=== PATIENT | male | born 1970 | race Caucasian/White ===

== ENCOUNTER 2016-08-06 04:48 | Emergency (ER) | payer OTHER ==
[~2016-08-06] VITALS: Ht 180.3 cm; Wt 75.0 kg
[~2016-08-06 04:48] MED LIST: CHLO25TA5 PO
[2016-08-06 04:57] VITALS: BP 136/106; PULSE 88; RESP 16; TEMP 98.6; O2SAT 99
[2016-08-06] MEDS ORDERED: EPIN1INJ19 IM (05:11)
--- NOTE | 2016-08-06 05:11 | PD ---
HPI Chief Complaint: Psychiatric Symptoms Time Seen by Provider: 04:57 Travel History International Travel<30 days: No Contact w/Intl Traveler<30days: No Traveled to known affect area: No History of Present Illness HPI 45-year-old male with history of schizoaffective disorder, depression, hepatitis C. He presents under a Parks act initiated by the Police Department. According to his paperwork the police were called by his sister. Reportedly the patient has been having thoughts of depression, suicidal thoughts as well as homicidal thoughts. He reports that he has been arguing with his fiance. He feels unappreciated. He reports that tonight he started hearing voices which are telling him to kill his fiance and then kill himself. Specifically he was having thoughts about jumping off of a tower or a bridge. The patient reports that he has not seen a psychiatrist "in a long time." He admits to using marijuana 1 time last week, no other illicit drug use. He endorses anxiety and loose stools over the past few weeks. He has no other complaints at this time. [facility] Past Medical History Anxiety: Yes Depression: Yes Heart Rhythm Problems: Yes ("R/T ADMISSION FELT PALPATATION") Cardiac Catheterization: No Cardiovascular Problems: Yes High Cholesterol: No Congestive Heart Failure: No Diabetes: No Diminished Hearing: No Hepatitis: Yes (C) Hypertension: Yes (NOT ON MEDS) Seizures: Yes Past Surgical History Eye Surgery: Yes (RETINAL SURG CHILD) Social History Alcohol Use: Yes Tobacco Use: Yes (<1/2 DAY) Substance Use: Yes Allergies-Medications (Allergen,Severity, Reaction): Coded Allergies: No Known Allergies (Unverified , 12/16/13) Reported Meds & Prescriptions Reported Meds & Active Scripts Active Reported Epinephrine Inj Pack (Epinephrine) 0.15 Mg/0.15 Ml Pfpen 0.15 Mg IM ONCE PRN Review of Systems Except as stated in HPI: all other systems reviewed are Neg Physical Exam Narrative GENERAL: Well-developed well-nourished male in no acute distress SKIN: Warm and dry. HEAD: Atraumatic. Normocephalic. EYES: Pupils equal and round. No scleral icterus. No injection or drainage. ENT: No nasal bleeding or discharge. Mucous membranes pink and moist. NECK: Trachea midline. No JVD. CARDIOVASCULAR: Regular rate and rhythm. No murmur appreciated. RESPIRATORY: No accessory muscle use. Clear to auscultation. Breath sounds equal bilaterally. GASTROINTESTINAL: Abdomen soft, non-tender, nondistended. Hepatic and splenic margins not palpable. MUSCULOSKELETAL: No obvious deformities. No edema. NEUROLOGICAL: Awake and alert. No obvious cranial nerve deficits. Motor grossly within normal limits. Normal speech. PSYCHIATRIC: Anxious, tearful on initial examination. Data Data Last Documented VS Vital Signs Date Time Temp Pulse Resp B/P Pulse Ox O2 Delivery O2 Flow Rate FiO2 08/06/16 05:45 97.9 81 16 115/62 96 Room Air Orders Complete Blood Count With Diff (08/06/16 04:54) Comprehensive Metabolic Panel (08/06/16 04:54) Psych Screen (08/06/16 04:54) Drug Screen, Random Urine (08/06/16 04:54) Alcohol (Ethanol) (08/06/16 04:54) Salicylates (Aspirin) (08/06/16 04:54) Tylenol (Acetaminophen) (08/06/16 04:54) Labs Laboratory Tests Test 08/06/16 05:00 White Blood Count 13.9 TH/MM3 Red Blood Count 5.14 MIL/MM3 Hemoglobin 16.3 GM/DL Hematocrit 46.4 % Mean Corpuscular Volume 90.3 FL Mean Corpuscular Hemoglobin 31.7 PG Mean Corpuscular Hemoglobin 35.1 % Concent Red Cell Distribution Width 14.2 % Platelet Count 254 TH/MM3 Mean Platelet Volume 7.9 FL Neutrophils (%) (Auto) 72.9 % Lymphocytes (%) (Auto) 17.5 % Monocytes (%) (Auto) 7.1 % Eosinophils (%) (Auto) 2.1 % Basophils (%) (Auto) 0.4 % Neutrophils # (Auto) 10.1 TH/MM3 Lymphocytes # (Auto) 2.4 TH/MM3 Monocytes # (Auto) 1.0 TH/MM3 Eosinophils # (Auto) 0.3 TH/MM3 Basophils # (Auto) 0.1 TH/MM3 CBC Comment DIFF FINAL Differential Comment Sodium Level 138 MEQ/L Potassium Level 3.9 MEQ/L Chloride Level 102 MEQ/L Carbon Dioxide Level 26.8 MEQ/L Anion Gap 9 MEQ/L Blood Urea Nitrogen 8 MG/DL Creatinine 0.88 MG/DL Estimat Glomerular Filtration 94 ML/MIN Rate Random Glucose 107 MG/DL Calcium Level 9.1 MG/DL Total Bilirubin 0.3 MG/DL Aspartate Amino Transf 34 U/L (AST/SGOT) Alanine Aminotransferase 53 U/L (ALT/SGPT) Alkaline Phosphatase 117 U/L Total Protein 8.3 GM/DL Albumin 4.0 GM/DL Salicylates Level LESS THAN 1.7 MG/DL Acetaminophen Level LESS THAN 2.0 MCG/ML Ethyl Alcohol Level LESS THAN 3 MG/DL MDM Medical Decision Making Medical Screen Exam Complete: Yes Emergency Medical Condition: Yes Medical Record Reviewed: Yes Differential Diagnosis Schizoaffective disorder, adjustment reaction, acute psychosis, schizophrenia, major depressive disorder, substance induced disorder Narrative Course 45-year-old male presents under Parks act for psychiatric evaluation. Mental health screening discussed with the patient. Psychiatric screen ordered. The patient is medically cleared for psychiatric disposition. Diagnosis Primary Impression: Suicidal ideation Gilberto Cornejo Aug 06, 2016 05:11
[2016-08-06 05:25] LABS: AUTOMATED NEUTROPHIL # 10.1 TH/MM3 (1.8-7.7); BASOPHIL # 0.1 TH/MM3 (0-0.2); BASOPHIL % 0.4 % (0.0-2.0); EOSINOPHIL # 0.3 TH/MM3 (0-0.4); EOSINOPHIL % 2.1 % (0.0-4.0); HEMATOCRIT 46.4 % (39.0-51.0); HEMO FLAGS DIFF FINAL; LYMPH % 17.5 % (9.0-44.0); LYMPHOCYTE # 2.4 TH/MM3 (1.0-4.8); MEAN CELL VOLUME 90.3 FL (80.0-100.0); MEAN CORPUSCULAR HEMOGLOBIN 31.7 PG (27.0-34.0); MEAN CORPUSCULAR HGB CONC 35.1 % (32.0-36.0); MONO % 7.1 % (0.0-8.0); NEUT % 72.9 % (16.0-70.0); PLATELET COUNT 254 TH/MM3 (150-450); RED BLOOD COUNT 5.14 MIL/MM3 (4.50-5.90); RED CELL DISTRIBUTION WIDTH 14.2 % (11.6-17.2); WHITE BLOOD COUNT 13.9 TH/MM3 (4.0-11.0)
[2016-08-06 05:45] VITALS: BP 115/62; PULSE 81; RESP 16; TEMP 97.9; O2SAT 96
[2016-08-06 05:46] LABS: ANION GAP 9 MEQ/L (5-15); AST (GOT) 34 U/L (15-37); BICARBONATE 26.8 MEQ/L (21.0-32.0); BLOOD UREA NITROGEN 8 MG/DL (7-18); CHLORIDE 102 MEQ/L (98-107); GLOMERULAR FILTRATION RATE 94 ML/MIN (>89); POTASSIUM 3.9 MEQ/L (3.5-5.1); SODIUM (NA) 138 MEQ/L (136-145)
[2016-08-06 05:50] LABS: ALKALINE PHOSPHATASE 117 U/L (45-117); ALT (GPT) 53 U/L (12-78); TOTAL BILIRUBIN ADULT 0.3 MG/DL (0.2-1.0)
[2016-08-06 05:53] LABS: ACETAMINOPHEN LESS THAN 2.0 MCG/ML (10.0-30.0)
[2016-08-06 07:15] VITALS: BP 120/77; PULSE 76; RESP 17; TEMP 97.8; O2SAT 99
[2016-08-06 12:38] VITALS: PULSE 83; RESP 17; TEMP 97.9; O2SAT 97
[2016-08-06 12:53] VITALS: BP 120/78; PULSE 76; RESP 18; TEMP 97.8; O2SAT 99
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
[2016-08-06 22:04] VITALS: BP 124/78; PULSE 75; RESP 18; O2SAT 97
[2016-08-06 23:31] LABS: AMPHETAMINE, URINE NEG (NEG); BARBITURATES, URINE NEG (NEG); COCAINE, URINE NEG (NEG)
[2016-08-07 02:25] VITALS: BP 124/80; PULSE 73; RESP 17; O2SAT 98
== END 2016-08-07 04:37 ==
LOC: NEPD 04:48 → NEPJ 08-07 04:37
DX: R45.851 Suicidal ideations (principal); F41.8 Other specified anxiety disorders; F17.210 Nicotine dependence, cigarettes, uncomplicated; F25.9 Schizoaffective disorder, unspecified; B19.20 Unspecified viral hepatitis C without hepatic coma
CPT/HCPCS: 80053; 80307; 85025; 99285

== ENCOUNTER 2016-12-17 06:01 | Emergency (ER) | payer OTHER ==
[~2016-12-17] VITALS: Ht 182.9 cm; Wt 75.0 kg
[~2016-12-17 06:01] MED LIST changes: -CHLO25TA5 PO; +EPIN1INJ19 IM
[2016-12-17 06:06] VITALS: BP 126/78; PULSE 92; RESP 18; TEMP 99; O2SAT 99
[2016-12-17 06:40] VITALS: BP 125/83; PULSE 91; RESP 18; O2SAT 95; O2SAT 99
--- NOTE | 2016-12-17 06:46 | PD ---
HPI Chief Complaint: Chest Pain Time Seen by Provider: 06:06 Travel History International Travel<30 days: No Contact w/Intl Traveler<30days: No Traveled to known affect area: No History of Present Illness HPI The patient is a 46 year old male who presents to the [facility] emergency department with a history of being placed under arrest approximately 3 hours prior to arrival. When the patient arrived at the nursing home approximately one hour prior to arrival in the emergency department he began to complain of chest pain. The patient was then brought to the emergency department for evaluation and treatment. The patient reports having a chest pain that is sharp in the left side of his chest. He reports that it has been constant. He denies having any shortness of breath associated with this. He reports that he does have a cough, however it has not been any worse than usual. The patient does report smoking. The patient reports that he got out of rehabilitation today. He reports that he was in rehabilitation for 3 days related to methamphetamine use, Jared use, and Velma use. The patient reports that he also uses IV drugs. When asked what he uses IV he reports anything he can get a hold of. The patient's past medical history is significant for having hepatitis C. He denies any prior history of cardiac disease. On review of systems, he denies any recent fevers, worsening cough or congestion, neck pain, urinary symptoms, or neurologic symptoms. Since arriving in the emergency department, the patient also reports that he has abdominal pain that is generalized. He reports that he has had diarrhea 3-4 times today and vomiting one time today. The patient then requested to have something to drink. [facility] Past Medical History Narrative Medical The patient's past medical history is significant for IV drug use, polysubstance abuse, tobacco use, and hepatitis C, History of anxiety and depression, palpitations, hypertension, anxiety and depression. Anxiety: Yes Depression: Yes Heart Rhythm Problems: Yes (PALPITATIONS) Cardiac Catheterization: No Cardiovascular Problems: Yes High Cholesterol: No Congestive Heart Failure: No Diabetes: No Diminished Hearing: No Hepatitis: Yes (Hep C) Hypertension: Yes Psychiatric: Yes (Schizo Affective) Seizures: Yes Tetanus Vaccination: < 5 Years Influenza Vaccination: Yes Past Surgical History Narrative Surgical The patient's past surgical history is significant for eye surgery Eye Surgery: Yes (retinal surgery 1978) Social History Alcohol Use: Yes (OCCASSIONALLY) Tobacco Use: Yes (1 PPD) Substance Use: Yes (MUSHROOMS, JARED, METH) Allergies-Medications (Allergen,Severity, Reaction): Coded Allergies: No Known Allergies (Unverified , 12/17/16) Reported Meds & Prescriptions Reported Meds & Active Scripts Active Reported Epinephrine Inj Pack (Epinephrine) 0.15 Mg/0.15 Ml Pfpen 0.15 Mg IM ONCE PRN Review of Systems Except as stated in HPI: all other systems reviewed are Neg General / Constitutional: No: Fever Eyes: No: Visual changes HENT: No: Headaches, Rhinorrhea, Congestion Cardiovascular: Positive: Chest Pain or Discomfort Respiratory: Positive: Cough, No: Shortness of Breath Gastrointestinal: Positive: Nausea, Vomiting, Diarrhea, Abdominal Pain, Changes in Bowel Habits, No: Indigestion, Loss of Appetite Genitourinary: No: Dysuria Musculoskeletal: No: Pain Skin: No Rash Neurologic: No: Weakness, Focal Abnormalities, Change in Mentation, Slurred Speech, Sensory Disturbance Psychiatric: No: Depression Endocrine: No: Polydipsia Hematologic/Lymphatic: No: Easy Bruising Physical Exam Narrative General: The patient is a well-developed well-nourished male in no acute distress. Head and Neck exam: Head is normocephalic atraumatic. Eyes: EOMI, pupils are equal round and reactive to light. Nose: Midline septum with pink mucous membranes Mouth: Dentition unremarkable. Moist mucus membranes. Posterior oropharynx is not erythematous. No tonsillar hypertrophy. Uvula midline. Airway patent. Neck: No palpable lymphadenopathy. No nuchal rigidity. No thyromegaly. Cardiovascular: Regular rate and rhythm without murmurs, gallops, or rubs. No pulse deficit to the extremities and simultaneous auscultation and palpation of his radial artery. Lungs: Clear to auscultation bilaterally. No wheezes, rhonchi, or rales. Abdomen: Soft, with tenderness on palpation that he reports is present in all 4 quadrants of the abdomen. No guarding, rebound, or rigidity. Normal bowel sounds are audible. No tenderness on palpation of McBurney's point. Negative Hatch's sign. Extremities: No clubbing, cyanosis, or edema. 2+ pulses in all 4 extremities. No calf tenderness on palpation. Back: No spinous process tenderness to palpation. No costovertebral angle tenderness to palpation. Neurologic Exam: Grossly nonfocal. Skin Exam: No rash noted. Intact skin that is warm and dry. Data Data Last Documented VS Vital Signs Date Time Temp Pulse Resp B/P (MAP) Pulse Ox O2 Delivery O2 Flow Rate FiO2 12/17/16 06:40 91 18 125/83 (97) 95 Room Air 12/17/16 06:06 99.0 MDM Medical Decision Making Medical Screen Exam Complete: Yes Emergency Medical Condition: Yes Medical Record Reviewed: Yes Differential Diagnosis Malingering, versus pleurisy, versus acute coronary syndrome, versus anxiety, versus pulmonary embolism, versus endocarditis Narrative Course During the course of the patients emergency department visit, the patients history, examination, and differential diagnosis were reviewed with the patient. The patient had IV access obtained and blood work sent for analysis. The patient was placed on a residential monitor with oximetry and blood pressure monitoring. An ECG was done on arrival. The patient's ECG reveals a heart rate of 89, no acute ST segment changes or T-wave abnormalities. The patient has no ST segment elevation. QRS duration is 73 ms, QTC is 377 ms. The patient was initially provided aspirin 324 mg by mouth 1, normal saline a 500 mL bolus 1. The patients laboratory studies and radiology studies are pending at the conclusion of my shift. The patient's case will be checked out to the oncoming emergency physician to disposition the patient based on the conclusion of his workup. Diagnosis Primary Impression: Chest pain Qualified Codes: R07.9 - Chest pain, unspecified Additional Impression: Abdominal pain Qualified Codes: R10.84 - Generalized abdominal pain Gretel Cee MD Dec 17, 2016 06:46
[2016-12-17 07:00] VITALS: BP 122/78
[2016-12-17] MEDS ORDERED: SODIUM CHLORIDE 0.9% FLUSH 10 ML FLUSH IVF PRN (07:00)
[2016-12-17] MEDS ORDERED: ONDANSETRON HCL 4 MG/2 ML VIAL IV PUSH ONE (07:00)
[2016-12-17] MEDS ORDERED: SODIUM CHLORID 0.9% 500 ML INJ 500 ML IV ONE (07:00)
[2016-12-17] MEDS ORDERED: ASPIRIN 81 MG CHEW TAB PO ONE (07:00)
[2016-12-17] MEDS ORDERED: PANTOPRAZOLE SODIUM 40 MG VIAL IV PUSH ONE (07:00)
[2016-12-17 07:06] VITALS: RESP 18; O2SAT 98
[2016-12-17 07:17] LABS: AUTOMATED NEUTROPHIL # 12.6 TH/MM3 (1.8-7.7); BASOPHIL # 0.1 TH/MM3 (0-0.2); BASOPHIL % 0.5 % (0.0-2.0); EOSINOPHIL # 0.1 TH/MM3 (0-0.4); EOSINOPHIL % 0.3 % (0.0-4.0); HEMATOCRIT 44.2 % (39.0-51.0); HEMO FLAGS DIFF FINAL; LYMPH % 18.3 % (9.0-44.0); LYMPHOCYTE # 3.2 TH/MM3 (1.0-4.8); MEAN CELL VOLUME 91.8 FL (80.0-100.0); MEAN CORPUSCULAR HEMOGLOBIN 32.5 PG (27.0-34.0); MEAN CORPUSCULAR HGB CONC 35.4 % (32.0-36.0); MONO % 8.8 % (0.0-8.0); NEUT % 72.1 % (16.0-70.0); PLATELET COUNT 238 TH/MM3 (150-450); RED BLOOD COUNT 4.81 MIL/MM3 (4.50-5.90); RED CELL DISTRIBUTION WIDTH 13.5 % (11.6-17.2); WHITE BLOOD COUNT 17.5 TH/MM3 (4.0-11.0)
[2016-12-17 07:26] LABS: APTT (PATIENT) 25.7 SEC (24.3-30.1); PROTHROMBIN TIME - PATIENT 10.5 SEC (9.8-11.6)
[2016-12-17 07:39] LABS: ALKALINE PHOSPHATASE 124 U/L (45-117); CREATINE KINASE 430 U/L (39-308); TOTAL BILIRUBIN ADULT 0.4 MG/DL (0.2-1.0)
[2016-12-17 07:46] LABS: ALT (GPT) 55 U/L (12-78); ANION GAP 11 MEQ/L (5-15); AST (GOT) 39 U/L (15-37); BICARBONATE 24.7 MEQ/L (21.0-32.0); BLOOD UREA NITROGEN 4 MG/DL (7-18); CHLORIDE 105 MEQ/L (98-107); GLOMERULAR FILTRATION RATE 87 ML/MIN (>89); MAGNESIUM 2.1 MG/DL (1.5-2.5); POTASSIUM 3.9 MEQ/L (3.5-5.1); SODIUM (NA) 141 MEQ/L (136-145)
[2016-12-17 07:52] LABS: CKMB 10.9 NG/ML (0.5-3.6)
--- NOTE | 2016-12-17 08:13 | PD ---
Physical Exam Date Seen by Provider: Dec 17, 2016 Narrative GENERAL: SKIN: Warm and dry. HEAD: Atraumatic. Normocephalic. EYES: Pupils equal and round. No scleral icterus. No injection or drainage. ENT: No nasal bleeding or discharge. Mucous membranes pink and moist. NECK: Trachea midline. No JVD. CARDIOVASCULAR: Regular rate and rhythm. RESPIRATORY: No accessory muscle use. Clear to auscultation. Breath sounds equal bilaterally. GASTROINTESTINAL: Abdomen soft, non-tender, nondistended. MUSCULOSKELETAL: Extremities without clubbing, cyanosis, or edema. No obvious deformities. NEUROLOGICAL: Awake and alert. No obvious cranial nerve deficits. Motor grossly within normal limits. Five out of 5 muscle strength in the arms and legs. Normal speech. PSYCHIATRIC: Appropriate mood and affect; insight and judgment normal. Data Data Last Documented VS Vital Signs Date Time Temp Pulse Resp B/P (MAP) Pulse Ox O2 Delivery O2 Flow Rate FiO2 12/17/16 07:06 18 98 Room Air 12/17/16 06:40 91 12/17/16 06:06 99.0 Orders Orders Electrocardiogram (12/17/16 06:49) Ckmb (Isoenzyme) Profile (12/17/16 06:49) Complete Blood Count With Diff (12/17/16 06:49) Comprehensive Metabolic Panel (12/17/16 06:49) Magnesium (Mg) (12/17/16 06:49) Prothrombin Time / Inr (Pt) (12/17/16 06:49) Act Partial Throm Time (Ptt) (12/17/16 06:49) Troponin I (12/17/16 06:49) Lipase (12/17/16 06:49) Chest, Single Ap (12/17/16 06:49) Ecg Monitoring (12/17/16 06:49) Bilateral Bp Monitoring (12/17/16 06:49) Iv Access Insert/Monitor (12/17/16 06:49) Oximetry (12/17/16 06:49) Oxygen Administration (12/17/16 06:49) Aspirin Chew (Aspirin Chew) (12/17/16 07:00) Sodium Chloride 0.9% Flush (Ns Flush) (12/17/16 07:00) Sodium Chlorid 0.9% 500 Ml Inj (Ns 500 M (12/17/16 07:00) Drug Screen, Random Urine (12/17/16 06:49) Pantoprazole Inj (Protonix Inj) (12/17/16 07:00) Ondansetron Inj (Zofran Inj) (12/17/16 07:00) CKMB (12/17/16 06:51) CKMB% (12/17/16 06:51) Labs Laboratory Tests Test 12/17/16 06:51 12/17/16 06:57 White Blood Count 17.5 TH/MM3 Red Blood Count 4.81 MIL/MM3 Hemoglobin 15.7 GM/DL Hematocrit 44.2 % Mean Corpuscular Volume 91.8 FL Mean Corpuscular Hemoglobin 32.5 PG Mean Corpuscular Hemoglobin Concent 35.4 % Red Cell Distribution Width 13.5 % Platelet Count 238 TH/MM3 Mean Platelet Volume 8.2 FL Neutrophils (%) (Auto) 72.1 % Lymphocytes (%) (Auto) 18.3 % Monocytes (%) (Auto) 8.8 % Eosinophils (%) (Auto) 0.3 % Basophils (%) (Auto) 0.5 % Neutrophils # (Auto) 12.6 TH/MM3 Lymphocytes # (Auto) 3.2 TH/MM3 Monocytes # (Auto) 1.5 TH/MM3 Eosinophils # (Auto) 0.1 TH/MM3 Basophils # (Auto) 0.1 TH/MM3 CBC Comment DIFF FINAL Differential Comment Prothrombin Time 10.5 SEC Prothromb Time International Ratio 1.0 RATIO Activated Partial Thromboplast Time 25.7 SEC Blood Urea Nitrogen 4 MG/DL Creatinine 0.94 MG/DL Random Glucose 98 MG/DL Total Protein 8.2 GM/DL Albumin 3.7 GM/DL Calcium Level 8.3 MG/DL Magnesium Level 2.1 MG/DL Alkaline Phosphatase 124 U/L Aspartate Amino Transf (AST/SGOT) 39 U/L Alanine Aminotransferase (ALT/SGPT) 55 U/L Total Bilirubin 0.4 MG/DL Sodium Level 141 MEQ/L Potassium Level 3.9 MEQ/L Chloride Level 105 MEQ/L Carbon Dioxide Level 24.7 MEQ/L Anion Gap 11 MEQ/L Estimat Glomerular Filtration Rate 87 ML/MIN Total Creatine Kinase 430 U/L Creatine Kinase MB 10.9 NG/ML Creatine Kinase MB % 2.5 % Troponin I LESS THAN 0.02 NG/ML Lipase 48 U/L Urine Opiates Screen NEG Urine Barbiturates Screen NEG Urine Amphetamines Screen NEG Urine Benzodiazepines Screen NEG Urine Cocaine Screen NEG Urine Cannabinoids Screen NEG MDM Medical Record Reviewed: Yes Supervised Visit with PEGGY: No Narrative Course NORMAL CXR, REACTIVE LEUKOCYTOSIS DUE TO METH USE WELL STRESS, PATIENT'S CLINICALLY STABLE FOR TRANSFER Diagnosis Primary Impression: Chest pain Qualified Codes: R07.9 - Chest pain, unspecified Additional Impressions: Abdominal pain Qualified Codes: R10.84 - Generalized abdominal pain Medical clearance for incarceration Disposition: [address] [employer] ENFORC[employer]NT Wale Anthony MD Dec 17, 2016 08:13
--- NOTE | 2016-12-17 09:45 | RADRPT ---
EXAM DATE/TIME: 12/17/2016 07:34 [facility] COMPARISON: CHEST SINGLE AP, April 25, 2013, 16:39. INDICATIONS : Anterior mid chest pain, denies injury MEDICAL HISTORY : None. SURGICAL HISTORY : None. ENCOUNTER: Initial ACUITY: 1 day PAIN SCORE: 10/10 LOCATION: chest FINDINGS: The heart and mediastinal structures are normal. The pulmonary vascular pattern is also normal. The lungs are clear. CONCLUSION: 1. No acute cardiopulmonary disease. Glen Boateng MD on December 17, 2016 at 9:24 Board Certified Radiologist. This report was verified electronically.
[2016-12-17 11:05] VITALS: BP 116/80
--- NOTE | 2016-12-17 12:45 | EKG ---
Date Performed: 12/17/2016 Time Performed: 06:15:07 PTAGE: 46 years EKG: Sinus rhythm NORMAL ECG PREVIOUS TRACING : 04/26/2013 00.15 DOCTOR: Carlos Diamond Interpretating Date/Time 12/17/2016 12:42:29
== END 2016-12-17 11:16 ==
LOC: NEPC 06:01
DX: R07.9 Chest pain, unspecified (principal); R10.84 Generalized abdominal pain; F17.210 Nicotine dependence, cigarettes, uncomplicated
CPT/HCPCS: 71010; 80053; 80307; 82550; 82552; 83690; 83735; 84484; 85025; 85610; 85730; 93005; 96374; 96375; 99285; C9113; J2405; J7040

== ENCOUNTER 2017-01-10 14:01 | Emergency (ER) | payer SELFPAY ==
[2017-01-10 14:03] VITALS: BP 125/88; PULSE 81; RESP 14; TEMP 98.4; O2SAT 98
== END 2017-01-10 16:04 | disposition left against medical advice (07) ==
LOC: NED 14:01
DX: F99 Mental disorder, not otherwise specified (principal)
CPT/HCPCS: 99281

== ENCOUNTER 2017-01-16 08:29 | Emergency (ER) | payer SELFPAY ==
[~2017-01-16] VITALS: Ht 182.9 cm; Wt 75.0 kg
[2017-01-16 08:31] VITALS: BP 122/80; PULSE 78; RESP 14; TEMP 98.2; O2SAT 98
[2017-01-16] MEDS ORDERED: DIVA250ER PO (09:10)
[2017-01-16] MEDS ORDERED: ZYPR2.5T2 PO (09:10)
[2017-01-16] MEDS ORDERED: ZOLO50TA PO (09:10)
--- NOTE | 2017-01-16 09:18 | PD ---
HPI Chief Complaint: Psychiatric Symptoms Time Seen by Provider: 09:04 Travel History International Travel<30 days: No Contact w/Intl Traveler<30days: No Traveled to known affect area: No History of Present Illness HPI 46-year-old male comes in voluntarily with psychiatric symptoms including auditory hallucinations, suicidal ideation, since being released from [facility] 10 days ago. Patient states he has not been taking his medications which included Depakote and Zyprexa since being discharged from [facility]. Patient denies any medical problems at this time. Patient states he wants to get checked out before he gets into trouble again. 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 PFSH Past Medical History Anxiety: Yes Depression: Yes Heart Rhythm Problems: Yes (PALPITATIONS) Cardiac Catheterization: No Cardiovascular Problems: Yes High Cholesterol: No Congestive Heart Failure: No Diabetes: No Diminished Hearing: No Hepatitis: Yes (Hep C) Hypertension: Yes Psychiatric: Yes (Schizo Affective) Seizures: Yes Past Surgical History Eye Surgery: Yes (retinal surgery 1978) Social History Alcohol Use: Yes (OCCASSIONALLY) Tobacco Use: Yes (1 PPD) Substance Use: Yes (MUSHROOMS, JARED, METH) Allergies-Medications (Allergen,Severity, Reaction): Coded Allergies: bee venom protein (honey bee) (Verified Allergy, Unknown, 01/16/17) peanut (Verified Allergy, Unknown, 01/16/17) Reported Meds & Prescriptions Reported Meds & Active Scripts Active Reported Depakote ER (Divalproex Sodium) Unknown Strength Dina Unknown Dose PO DAILY Zoloft (Sertraline HCl) 50 Mg Tab 50 Mg PO DAILY Zyprexa (Olanzapine) Unknown Strength Tab Unknown Dose PO HS Review of Systems Except as stated in HPI: all other systems reviewed are Neg General / Constitutional: No: Fever Eyes: No: Visual changes HENT: No: Headaches Cardiovascular: No: Chest Pain or Discomfort Respiratory: No: Shortness of Breath Gastrointestinal: No: Abdominal Pain Genitourinary: No: Dysuria Musculoskeletal: No: Pain Skin: No Rash Neurologic: No: Weakness Psychiatric: Positive: Depression, Suicidal Ideations, Other (auditory hallucinations) Endocrine: No: Polydipsia Hematologic/Lymphatic: No: Easy Bruising Physical Exam Narrative GENERAL: Patient appears in no acute distress. SKIN: Warm and dry. Normal color. Normal turgor. HEAD: Atraumatic. Normocephalic. EYES: Pupils equal and round. No scleral icterus. No injection or drainage. ENT: No nasal bleeding or discharge. Mucous membranes pink and moist. Pharynx is clear. Airway is patent. NECK: Trachea midline. Supple. CARDIOVASCULAR: Regular rate and rhythm. RESPIRATORY: No accessory muscle use. Clear to auscultation. Breath sounds equal bilaterally. MUSCULOSKELETAL: Extremities without clubbing, cyanosis, or edema. No obvious deformities. NEUROLOGICAL: Awake and alert. No obvious cranial nerve deficits. Motor grossly within normal limits. Five out of 5 muscle strength in the arms and legs. Normal speech. PSYCHIATRIC: Appropriate mood and affect; insight and judgment normal. Data Data Last Documented VS Vital Signs Date Time Temp Pulse Resp B/P (MAP) Pulse Ox O2 Delivery O2 Flow Rate FiO2 01/16/17 09:12 16 01/16/17 08:31 98.2 78 122/80 (94) 98 Orders Orders Complete Blood Count With Diff (01/16/17 09:11) Comprehensive Metabolic Panel (01/16/17 09:11) Psych Screen (01/16/17 09:11) Drug Screen, Random Urine (01/16/17 09:11) Diet Regular Basic (01/16/17 Breakfast) MDM Medical Decision Making Medical Screen Exam Complete: Yes Emergency Medical Condition: Yes Medical Record Reviewed: Yes Differential Diagnosis Suicidal ideation. Auditory hallucinations. Depression. Schizoaffective disorder. Narrative Course Patient is here voluntarily. Require psychiatric evaluation. Psychiatric labs ordered per protocol. Patient is medically clear for psychiatric evaluation. Diagnosis Primary Impression: Suicidal ideation Additional Impressions: Schizoaffective disorder Qualified Codes: F25.0 - Schizoaffective disorder, bipolar type Medical clearance for psychiatric admission Condition: Rahul Cano Jan 16, 2017 09:18
[2017-01-16 09:40] LABS: AUTOMATED NEUTROPHIL # 3.9 TH/MM3 (1.8-7.7); BASOPHIL # 0.1 TH/MM3 (0-0.2); BASOPHIL % 1.1 % (0.0-2.0); EOSINOPHIL # 0.3 TH/MM3 (0-0.4); EOSINOPHIL % 4.6 % (0.0-4.0); HEMATOCRIT 39.9 % (39.0-51.0); HEMO FLAGS DIFF FINAL; LYMPH % 28.4 % (9.0-44.0); MEAN CELL VOLUME 93.8 FL (80.0-100.0); MEAN CORPUSCULAR HEMOGLOBIN 31.8 PG (27.0-34.0); MEAN CORPUSCULAR HGB CONC 33.9 % (32.0-36.0); MONO % 10.5 % (0.0-8.0); NEUT % 55.4 % (16.0-70.0); PLATELET COUNT 239 TH/MM3 (150-450); RED BLOOD COUNT 4.25 MIL/MM3 (4.50-5.90); RED CELL DISTRIBUTION WIDTH 14.1 % (11.6-17.2); WHITE BLOOD COUNT 6.9 TH/MM3 (4.0-11.0)
[2017-01-16 10:00] LABS: ALKALINE PHOSPHATASE 156 U/L (45-117); TOTAL BILIRUBIN ADULT 0.2 MG/DL (0.2-1.0)
[2017-01-16 10:02] LABS: ALT (GPT) 39 U/L (12-78); ANION GAP 6 MEQ/L (5-15); AST (GOT) 36 U/L (15-37); BICARBONATE 26.8 MEQ/L (21.0-32.0); BLOOD UREA NITROGEN 9 MG/DL (7-18); CHLORIDE 111 MEQ/L (98-107); GLOMERULAR FILTRATION RATE 111 ML/MIN (>89); SODIUM (NA) 144 MEQ/L (136-145)
[2017-01-16 10:03] LABS: POTASSIUM 4.5 MEQ/L (3.5-5.1)
[2017-01-16 18:21] VITALS: BP 134/80; PULSE 61; RESP 17; TEMP 98.7; O2SAT 98
[2017-01-16 22:07] VITALS: BP 146/80; PULSE 60; RESP 18; O2SAT 98
[2017-01-17 02:00] VITALS: BP 130/82; PULSE 80; RESP 16; O2SAT 97
[2017-01-17 08:42] VITALS: BP 115/83; PULSE 64; RESP 18; O2SAT 99
[2017-01-17] MEDS ORDERED: AMIT50TA3 PO ×2 (10:06→15:06)
[2017-01-17] MEDS ORDERED: LITH150C PO (10:07)
[2017-01-17] MEDS ORDERED: diphenhydrAMINE HCL 50 MG CAP PO ONE (10:45)
[2017-01-17] MEDS ORDERED: NICOTINE 21 MG/24 HR PATCH T-DERMAL ONE (10:45)
--- NOTE | 2017-01-17 15:04 | PD ---
Physical Exam Time Seen by Provider: 15:03 Narrative Please refer to previous providers documentation for details surrounding the patient's current visit. Data Data Last Documented VS Vital Signs Date Time Temp Pulse Resp B/P (MAP) Pulse Ox O2 Delivery O2 Flow Rate FiO2 01/17/17 08:42 64 18 115/83 (94) 99 01/16/17 18:21 98.7 Orders Orders Complete Blood Count With Diff (01/16/17 09:11) Comprehensive Metabolic Panel (01/16/17 09:11) Psych Screen (01/16/17 09:11) Drug Screen, Random Urine (01/16/17 09:11) Diet Regular Basic (01/16/17 Breakfast) Hydroxyzine Pamoate (Vistaril) (01/16/17 21:00) Diet Regular Basic (01/17/17 Breakfast) Diet Regular Basic (01/17/17 Lunch) Nicotine 21 Mg Patch.24 Hr (Habitrol 21 (01/17/17 10:45) Diphenhydramine (Benadryl) (01/17/17 10:45) Labs Laboratory Tests Test 01/16/17 09:15 White Blood Count 6.9 TH/MM3 Red Blood Count 4.25 MIL/MM3 Hemoglobin 13.5 GM/DL Hematocrit 39.9 % Mean Corpuscular Volume 93.8 FL Mean Corpuscular Hemoglobin 31.8 PG Mean Corpuscular Hemoglobin Concent 33.9 % Red Cell Distribution Width 14.1 % Platelet Count 239 TH/MM3 Mean Platelet Volume 7.5 FL Neutrophils (%) (Auto) 55.4 % Lymphocytes (%) (Auto) 28.4 % Monocytes (%) (Auto) 10.5 % Eosinophils (%) (Auto) 4.6 % Basophils (%) (Auto) 1.1 % Neutrophils # (Auto) 3.9 TH/MM3 Lymphocytes # (Auto) 2.0 TH/MM3 Monocytes # (Auto) 0.7 TH/MM3 Eosinophils # (Auto) 0.3 TH/MM3 Basophils # (Auto) 0.1 TH/MM3 CBC Comment DIFF FINAL Differential Comment Blood Urea Nitrogen 9 MG/DL Creatinine 0.76 MG/DL Random Glucose 106 MG/DL Total Protein 6.6 GM/DL Albumin 2.8 GM/DL Calcium Level 8.3 MG/DL Alkaline Phosphatase 156 U/L Aspartate Amino Transf (AST/SGOT) 36 U/L Alanine Aminotransferase (ALT/SGPT) 39 U/L Total Bilirubin 0.2 MG/DL Sodium Level 144 MEQ/L Potassium Level 4.5 MEQ/L Chloride Level 111 MEQ/L Carbon Dioxide Level 26.8 MEQ/L Anion Gap 6 MEQ/L Estimat Glomerular Filtration Rate 111 ML/MIN Urine Opiates Screen NEG Urine Barbiturates Screen NEG Urine Amphetamines Screen NEG Urine Benzodiazepines Screen NEG Urine Cocaine Screen NEG Urine Cannabinoids Screen NEG MDM Medical Record Reviewed: Yes Supervised Visit with PEGGY: No Narrative Course Patient presents to the emergency department on a voluntary status. Medically cleared and evaluated by psychiatry. Patient does not meet inpatient criteria. He'll be discharged home at this time. Diagnosis Primary Impression: Suicidal ideation Additional Impressions: Medical clearance for psychiatric admission Schizoaffective disorder Qualified Codes: F25.0 - Schizoaffective disorder, bipolar type Referrals: [facility] (Out patient) Patient Instructions: General Instructions, Schizoaffective Disorder (ED) Med/Other Pt SpecificInfo: Prescription(s) given Disposition: DISCHARGE HOME Condition: Stable Torri Hall Jan 17, 2017 15:04
--- NOTE | 2017-01-17 15:04 | PD.PSY.CON ---
Provisional Diagnosis Admission Date [place] I. Adjustment disorder with mixed disturbances of emotion and conduct F 43.25 History of Present Illness Service Psychiatry Consult Requested By EDMD Reason for Consult Assessment Primary Care Physician No Primary Care Physician HPI Patient is a 46-year-old white male who comes here voluntarily second visit within the past week patient is now residing at [facility]. He has been there for about a month that is doing well there. Prior to that he was incarcerated for domestic battery. While in intermediate it appears she was being treated for that might be a mood type disorder with psychotic flavor was on Zyprexa and maybe lithium. Since coming to [facility] these been out of his medications. This is less to some vague increase in the voices with sleep disturbances. Had been taking Zyprexa at bedtime he feels this is not working as well for him as available had been for a number of years prior to this. Patient states he is a , Concepcion, that saw action in the . It also appears that he has a less than honorable discharge that he is appealing at the present time. In any event she states is a bed available for him at [facility]. He denies suicidality homicidality voices or visions at this time. He would like a refill on his Elavil at 50 mg at at bedtime. And a referral to mental health follow-up in the community. I feel patient is legitimate with this. Thus I will prescribe Elavil 50 mg #30 one at at bedtime with no refills referral Mr. Carolyn raya outpatient mental health services Review of Systems Constitutional: DENIES: Diaphoretic episodes, Fatigue, Fever, Weight gain, Weight loss, Chills, Dizziness, Change in appetite, Night Sweats Endocrine: DENIES: Heat/cold intolerance, Polydipsia, Polyuria, Polyphagia Eyes: DENIES: Blurred vision, Diplopia, Eye inflammation, Eye pain, Vision loss , Photosensitivity, Double Vision Ears, nose, mouth, throat: DENIES: Tinnitus, Hearing loss, Vertigo, Nasal discharge, Oral lesions, Throat pain, Hoarseness, Ear Pain, Running Nose, Epistaxis, Sinus Pain, Toothache, Odynophagia Respiratory: DENIES: Apneas, Cough, Snoring, Wheezing, Hemoptysis, Sputum production, Shortness of breath Cardiovascular: DENIES: Chest pain, Palpitations, Syncope, Dyspnea on Exertion , PND, Lower Extremity Edema, Orthopnea, Claudication Gastrointestinal: DENIES: Abdominal pain, Black stools, Bloody stools, Constipation, Diarrhea, Nausea, Vomiting, Difficulty Swallowing, Anorexia Genitourinary: DENIES: Sexual dysfunction, Urinary frequency, Urinary incontinence, Urgency, Hematuria, Dysuria, Nocturia, Penile Discharge, Testicular Pain, Testicular Swelling Musculoskeletal: DENIES: Joint pain, Muscle aches, Stiffness, Joint Swelling, Back pain, Neck pain Integumentary: DENIES: Abnormal pigmentation, Nail changes, Pruritus, Rash Hematologic/lymphatic: DENIES: Bruising, Lymphadenopathy Immunologic/allergic: DENIES: Eczema, Urticaria Neurologic: DENIES: Abnormal gait, Headache, Localized weakness, Paresthesias, Seizures, Speech Problems, Tremor, Poor Balance Psychiatric: COMPLAINS OF: Anxiety (states softer today), Hallucinations, Suicidal Ideation (denying today) Past Family Social History Coded Allergies: bee venom protein (honey bee) (Verified Allergy, Unknown, 01/16/17) peanut (Verified Allergy, Unknown, 01/16/17) Past Medical History Patient medically cleared ED Reported Medications [place] Carbonate ([place] Carbonate) 150 Mg Cap, 150 MG PO TID, CAP 0 Refills 01/17/17 Amitriptyline (Amitriptyline) 50 Mg Tab, 50 MG PO HS, TAB 01/17/17 Divalproex ER (Depakote ER) Unknown Strength Dina, PO DAILY for Control Seizures, #30 TAB 0 Refills 01/16/17 Sertraline (Zoloft) 50 Mg Tab, 50 MG PO DAILY, #30 TAB 0 Refills 01/16/17 Olanzapine (Zyprexa) Unknown Strength Tab, PO HS, #30 TAB 0 Refills 01/16/17 Discontinued Reported Medications Epinephrine Inj Pack (Epinephrine Inj Pack) 0.15 Mg/0.15 Ml Pfpen, 0.15 MG IM ONCE Y for ALLERGIC REACTION, #1 PACK 08/06/16 Family Psych History Patient states wish this to his father committed suicide by gunshot wound to the head when he was a young boy Social History Patient is resting violence charges between he and his ex-girlfriend Patient's Strengths (min. 2) Patient verbal labile [facility] cooperative Physical Exam Patient seen screened in ED exam reveals agreed with Vital Signs Vital Signs Date Time Temp Pulse Resp B/P (MAP) Pulse Ox O2 Delivery O2 Flow Rate FiO2 01/17/17 08:42 64 18 115/83 (94) 99 01/16/17 18:21 98.7 Mental Status Examination Appearance: Appropriate Consciousness: Alert Orientation: x4 Motor Activity: Normal gait Speech: Pressured, Rapid Language: Adequate Fund of Knowledge: Adequate Attention and Concentration: Adequate Memory: Unremarkable Mood: Other (good range intensity to somewhat elevated) Affect: Other (increase range and intensity) Thought Process & Associations: Intact Thought Content: Appropriate Hallucination Type: None (denies at this time) Delusion Type: None Suicidal Ideation: No (denies at this time) Suicidal Plan: No Suicidal Intention: No Homicidal Ideation: No Homicidal Plan: No Homicidal Intention: No Insight: Fair Judgment: Adequate Assessment & Plan Problem List: (1) Acute adjustment disorder with mixed disturbance of emotions and conduct ICD Codes: F43.25 - Adjustment disorder with mixed disturbance of emotions and conduct Assessment & Plan Estimated LOS: days patient does not meet criteria for inpatient psychiatric stay. Is a safe place to go its loose but does see, will give her 1 month supply of Elavil 50 mg at at bedtime, referral Mr. [facility] for further mental health treatment Discharge Planning See above Request HC Surrog/Guard Advoc?: No Raul Napier MD Jan 17, 2017 15:04
== END 2017-01-17 15:32 | disposition home or self-care (01) ==
LOC: NEPD 08:29 → NEPJ 01-17 15:32
DX: R45.851 Suicidal ideations (principal); F25.0 Schizoaffective disorder, bipolar type; F41.8 Other specified anxiety disorders; F17.210 Nicotine dependence, cigarettes, uncomplicated; F12.90 Cannabis use, unspecified, uncomplicated
CPT/HCPCS: 80053; 80307; 85025; 99284; Q0163

== ENCOUNTER 2017-04-16 10:16 | Emergency (ER) | payer SELFPAY ==
[~2017-04-16] VITALS: Ht 182.9 cm; Wt 81.5 kg
[~2017-04-16 10:16] MED LIST changes: +AMIT50TA3 PO; +DIVA250ER PO; -EPIN1INJ19 IM; +LITH150C PO; +ZOLO50TA PO; +ZYPR2.5T2 PO
[2017-04-16 10:17] VITALS: BP 131/82; PULSE 117; RESP 20; TEMP 97.9; O2SAT 99
--- NOTE | 2017-04-16 10:39 | PD ---
HPI Chief Complaint: Suicide Ideation/Attempt Time Seen by Provider: 10:29 Travel History International Travel<30 days: No Contact w/Intl Traveler<30days: No Traveled to known affect area: No History of Present Illness HPI 46-year-old male requesting psychiatric help. Patient states that she took Benadryl, 50 pills last night trying to kill himself. Patient states that he has some alcohol last night also. Patient has history of schizophrenia, depression. Patient attempted suicide by cutting his right wrist in the past. Patient states that he has mild aching headache. Patient denies any visual change. Patient denies any neck pain. Patient complained of chest wall pain abdominal pain and extremity pain. Patient denies any fever chills. Patient has history of cocaine abuse. Last cocaine use was 2 days ago. Patient has history of hepatitis C. Patient denies any other medical problem. PFSH Past Medical History Anxiety: Yes Depression: Yes Heart Rhythm Problems: Yes (PALPITATIONS) Cardiac Catheterization: No Cardiovascular Problems: Yes High Cholesterol: No Congestive Heart Failure: No Diabetes: No Diminished Hearing: No Hepatitis: Yes (Hep C) Hypertension: Yes Psychiatric: Yes (Schizo Affective) Seizures: Yes Past Surgical History Eye Surgery: Yes (retinal surgery 1978) Social History Alcohol Use: Yes (OCCASSIONALLY) Tobacco Use: Yes (1 PPD) Substance Use: Yes Allergies-Medications (Allergen,Severity, Reaction): Coded Allergies: bee venom protein (honey bee) (Verified Allergy, Unknown, 01/16/17) peanut (Verified Allergy, Unknown, 01/16/17) Reported Meds & Prescriptions Reported Meds & Active Scripts Active Amitriptyline (Amitriptyline HCl) 50 Mg Tab 50 Mg PO HS Reported [place] Carbonate 150 Mg Cap 150 Mg PO TID Depakote ER (Divalproex Sodium) Unknown Strength Dina Unknown Dose PO DAILY Zoloft (Sertraline HCl) 50 Mg Tab 50 Mg PO DAILY Zyprexa (Olanzapine) Unknown Strength Tab Unknown Dose PO HS Review of Systems General / Constitutional: No: Fever Eyes: No: Visual changes HENT: No: Headaches Cardiovascular: No: Chest Pain or Discomfort Respiratory: No: Shortness of Breath Gastrointestinal: No: Abdominal Pain Genitourinary: No: Dysuria Musculoskeletal: No: Pain Skin: No Rash Neurologic: No: Weakness Psychiatric: No: Depression Endocrine: No: Polydipsia Hematologic/Lymphatic: No: Easy Bruising Physical Exam Narrative GENERAL: Well-nourished, well-developed patient. SKIN: Focused skin assessment warm/dry. HEAD: Normocephalic. EYES: No scleral icterus. No injection or drainage. NECK: Supple, trachea midline. No JVD or lymphadenopathy. CARDIOVASCULAR: Regular rate and rhythm without murmurs, gallops, or rubs. RESPIRATORY: Breath sounds equal bilaterally. No accessory muscle use. GASTROINTESTINAL: Abdomen soft, non-tender, nondistended. MUSCULOSKELETAL: No cyanosis, or edema. BACK: Nontender without obvious deformity. No CVA tenderness. Neurologic exam normal. Data Data Last Documented VS Vital Signs Date Time Temp Pulse Resp B/P (MAP) Pulse Ox O2 Delivery O2 Flow Rate FiO2 04/16/17 10:17 97.9 117 20 131/82 (98) 99 Room Air Orders Orders Complete Blood Count With Diff (04/16/17 10:34) Comprehensive Metabolic Panel (04/16/17 10:34) Electrocardiogram (04/16/17 10:34) Psych Screen (04/16/17 10:34) Drug Screen, Random Urine (04/16/17 10:34) Alcohol (Ethanol) (04/16/17 10:34) Salicylates (Aspirin) (04/16/17 10:34) Tylenol (Acetaminophen) (04/16/17 10:34) Valproic Acid (Depakene) (04/16/17 10:38) [place] (Li) (04/16/17 10:38) Labs Laboratory Tests Test 04/16/17 10:45 White Blood Count 14.1 TH/MM3 Red Blood Count 5.10 MIL/MM3 Hemoglobin 15.9 GM/DL Hematocrit 46.0 % Mean Corpuscular Volume 90.1 FL Mean Corpuscular Hemoglobin 31.2 PG Mean Corpuscular Hemoglobin Concent 34.7 % Red Cell Distribution Width 13.3 % Platelet Count 251 TH/MM3 Mean Platelet Volume 6.9 FL Neutrophils (%) (Auto) 69.0 % Lymphocytes (%) (Auto) 21.1 % Monocytes (%) (Auto) 8.1 % Eosinophils (%) (Auto) 1.2 % Basophils (%) (Auto) 0.6 % Neutrophils # (Auto) 9.8 TH/MM3 Lymphocytes # (Auto) 3.0 TH/MM3 Monocytes # (Auto) 1.1 TH/MM3 Eosinophils # (Auto) 0.2 TH/MM3 Basophils # (Auto) 0.1 TH/MM3 CBC Comment DIFF FINAL Differential Comment Blood Urea Nitrogen 10 MG/DL Creatinine 0.85 MG/DL Random Glucose 107 MG/DL Total Protein 8.2 GM/DL Albumin 3.9 GM/DL Calcium Level 8.5 MG/DL Alkaline Phosphatase 137 U/L Aspartate Amino Transf (AST/SGOT) 62 U/L Alanine Aminotransferase (ALT/SGPT) 101 U/L Total Bilirubin 0.4 MG/DL Sodium Level 137 MEQ/L Potassium Level 4.0 MEQ/L Chloride Level 103 MEQ/L Carbon Dioxide Level 27.3 MEQ/L Anion Gap 7 MEQ/L Estimat Glomerular Filtration Rate 97 ML/MIN Salicylates Level LESS THAN 1.7 MG/DL Acetaminophen Level LESS THAN 2.0 MCG/ML Valproic Acid (Depakene) Level LESS THAN 3 MCG/ML [place] Level LESS THAN 0.1 MEQ/L Ethyl Alcohol Level 25 MG/DL MDM Medical Decision Making Medical Screen Exam Complete: Yes Emergency Medical Condition: Yes Interpretation(s) 12:02 PM. CBC WBC 14.1. Normal differential. AST 62. ALT 101. I black phosphatase 137. Salicylate and acetaminophen negative. Valproic acid less than 3. [place] less than 0.1. Alcohol 25. Differential Diagnosis Differential diagnosis including depression, suicidal, substance abuse Narrative Course 46-year-old male severe depression and suicidal attempt. History of schizophrenia. Patient took 50 pills of Benadryl last night. 12:03 PM. Patient medically cleared for psychiatric evaluation and disposition. Goran Eaton MD Apr 16, 2017 10:39
[2017-04-16 11:01] LABS: AUTOMATED NEUTROPHIL # 9.8 TH/MM3 (1.8-7.7); BASOPHIL # 0.1 TH/MM3 (0-0.2); BASOPHIL % 0.6 % (0.0-2.0); EOSINOPHIL # 0.2 TH/MM3 (0-0.4); EOSINOPHIL % 1.2 % (0.0-4.0); HEMOGLOBIN 15.9 GM/DL (13.0-17.0); LYMPH % 21.1 % (9.0-44.0); MEAN CELL VOLUME 90.1 FL (80.0-100.0); MEAN CORPUSCULAR HEMOGLOBIN 31.2 PG (27.0-34.0); MEAN CORPUSCULAR HGB CONC 34.7 % (32.0-36.0); MEAN PLATELET VOLUME 6.9 FL (7.0-11.0); MONO % 8.1 % (0.0-8.0); MONOCYTE # 1.1 TH/MM3 (0-0.9); PLATELET COUNT 251 TH/MM3 (150-450); RED CELL DISTRIBUTION WIDTH 13.3 % (11.6-17.2); WHITE BLOOD COUNT 14.1 TH/MM3 (4.0-11.0)
[2017-04-16 11:25] LABS: ALBUMIN 3.9 GM/DL (3.4-5.0); AST (GOT) 62 U/L (15-37); BICARBONATE 27.3 MEQ/L (21.0-32.0); BLOOD UREA NITROGEN 10 MG/DL (7-18); CALCIUM 8.5 MG/DL (8.5-10.1); CHLORIDE 103 MEQ/L (98-107); CREATININE 0.85 MG/DL (0.60-1.30); GLOMERULAR FILTRATION RATE 97 ML/MIN (>89); GLUCOSE,RANDOM 107 MG/DL (74-106); SODIUM (NA) 137 MEQ/L (136-145)
[2017-04-16 11:26] LABS: ALT (GPT) 101 U/L (12-78)
[2017-04-16 11:28] LABS: ALKALINE PHOSPHATASE 137 U/L (45-117); TOTAL BILIRUBIN ADULT 0.4 MG/DL (0.2-1.0); TOTAL PROTEIN 8.2 GM/DL (6.4-8.2)
[2017-04-16 11:38] LABS: ACETAMINOPHEN LESS THAN 2.0 MCG/ML (10.0-30.0)
[2017-04-16 15:42] VITALS: BP 125/79; PULSE 100; RESP 18; O2SAT 98
[2017-04-16] MEDS ORDERED: AMIT100T2 PO (16:45)
[2017-04-16 19:30] VITALS: BP 169/88; PULSE 92; RESP 17; TEMP 98.4; O2SAT 96
--- NOTE | 2017-04-16 19:51 | PD ---
History of Present Illness Chief Complaint: Suicide Ideation/Attempt Time Seen by Provider: 19:30 Travel History International Travel<30 Days: No Contact w/Intl Traveler<30days: No Known affected area: No Legal Status Legal Status: Voluntary History of Present Illness: History of Present Illness HPI 46-year-old male requesting psychiatric help. Patient states that she took Benadryl, 50 pills last night trying to kill himself. Patient states that he has some alcohol last night also. Patient has history of schizophrenia, depression. Patient attempted suicide by cutting his right wrist in the past. Patient states that he has mild aching headache. Patient denies any visual change. Patient denies any neck pain. Patient complained of chest wall pain abdominal pain and extremity pain. Patient denies any fever chills. Patient has history of cocaine abuse. Last cocaine use was 2 days ago. Patient has history of hepatitis C. Patient denies any other medical problem. Beatriz is seen with ROLA Schaefer. He is requesting extermination inspector treatment for his continued use of substances. and states " I need something to help me stop". He has been using cocaine and reports he was drinking last night. Has not followed up with outpatient care when he was here the last time. He then states that he was receiving care at [facility] in [place]. He came back to [facility] on Wednesday. He initially told the psych screener ernesto he was renting a room but now states that he has no where to go. PFSH Past Medical History Anxiety: Yes Depression: Yes Heart Rhythm Problems: Yes (PALPITATIONS) Cardiac Catheterization: No Cardiovascular Problems: Yes High Cholesterol: No Congestive Heart Failure: No Diabetes: No Diminished Hearing: No Hepatitis: Yes (Hep C) Hypertension: Yes Psychiatric: Yes (Schizo Affective) Seizures: Yes ?: Not Past Surgical History Eye Surgery: Yes (retinal surgery 1978) Psychiatric History Psychiatric History Hx Psychiatric Treatment: Reports has received tretament while incarcerated. currently not on any medication. l. History of Inpatient Treatment: Yes Guns or firearms in home: No Social History Single, unemployed, homeless. Hx Alcohol Use: Yes (OCCASSIONALLY) Hx Tobacco Use: Yes (1 PPD) Hx Substance Use: Yes Substance Use Type: Cocaine Other Substances Used: Past use of mushrooms and irasema Hx of Substance Use Treatment: No Family Psychiatric History Father committed suicide when patient was 12 years old. Allergies-Medications (Allergen,Severity, Reaction): Coded Allergies: bee venom protein (honey bee) (Verified Allergy, Unknown, 01/16/17) peanut (Verified Allergy, Unknown, 01/16/17) Reported Meds & Prescriptions Reported Meds & Active Scripts Active Reported Amitriptyline (Amitriptyline HCl) 100 Mg Tab 100 Mg PO HS Zoloft (Sertraline HCl) 50 Mg Tab 50 Mg PO DAILY Review of Systems Except as stated in HPI: all other systems reviewed are Neg Mental Status Examination Appearance: Appropriate Consciousness: Alert Orientation: x4 Motor Activity: Normal gait Speech: Unremarkable Language: Adequate Fund of Knowledge: Adequate Attention and Concentration: Adequate Memory: Unremarkable Mood: Appropriate Affect: Appropriate Thought Process & Associations: Intact, Logical, Goal directed Thought Content: Appropriate Hallucination Type: None Suicidal Ideation: No Suicidal Plan: No Suicidal Intention: No Homicidal Ideation: No Homicidal Plan: No Homicidal Intention: No Insight: Poor Judgment: Impulsive MDM Medical Decision Making Medical Record Reviewed: Yes Assessment/Plan 46-year-old male with history of adjustment disorder, substance use disorder including cocaine abuse who presents to the emergency department on a voluntary basis requesting psychiatric assistance. He alleges that he took 50 Benadryl last night along with alcohol in an attempt to end his life. The patient was monitored in secure environment presented no behavioral concerns and he presented no suicidality. The patient is future oriented and wants to go into a rehabilitation facility specifically a long-term treatment facility. He ultimately admits that he is homeless and has no place to go. The patient appears to be attending to his basic needs. No evidence of any unstable mental illness as defined under the [place] act. Main issue seems to be substance abuse. Lyle the relevant factors and based on the available evidence, the patient is clear for psychiatric discharge. He is provided a bus passes so that he can get to [facility]. Upon discussion of discharge the patient states that if he is not admitted to [facility] tonight he does not guarantee his safety. Strong antisocial personality qualities are evidence in his interactions. He appears to be attempting to gain chcf at this time. Admitted him to an inpatient psychiatric facility will be counter therapeutic. He is provided psychoeducation and strongly encourage him to seek treatment for his substance abuse. Cleared for discharge. He accepts bus passes for [facility] and plans on presenting there for treatment. Psychiatrically clear for discharge. Orders Orders Complete Blood Count With Diff (04/16/17 10:34) Comprehensive Metabolic Panel (04/16/17 10:34) Electrocardiogram (04/16/17 10:34) Psych Screen (04/16/17 10:34) Drug Screen, Random Urine (04/16/17 10:34) Alcohol (Ethanol) (04/16/17 10:34) Salicylates (Aspirin) (04/16/17 10:34) Tylenol (Acetaminophen) (04/16/17 10:34) Valproic Acid (Depakene) (04/16/17 10:38) [place] (Li) (04/16/17 10:38) Diet Regular Basic (04/16/17 Dinner) Results Vital Signs Date Time Temp Pulse Resp B/P (MAP) Pulse Ox O2 Delivery O2 Flow Rate FiO2 04/16/17 16:47 04/16/17 15:42 100 18 125/79 (94) 98 Room Air 04/16/17 10:17 97.9 117 20 131/82 (98) 99 Room Air Laboratory Tests Test 04/16/17 10:45 04/16/17 12:30 White Blood Count 14.1 Red Blood Count 5.10 Hemoglobin 15.9 Hematocrit 46.0 Mean Corpuscular Volume 90.1 Mean Corpuscular Hemoglobin 31.2 Mean Corpuscular Hemoglobin Concent 34.7 Red Cell Distribution Width 13.3 Platelet Count 251 Mean Platelet Volume 6.9 Neutrophils (%) (Auto) 69.0 Lymphocytes (%) (Auto) 21.1 Monocytes (%) (Auto) 8.1 Eosinophils (%) (Auto) 1.2 Basophils (%) (Auto) 0.6 Neutrophils # (Auto) 9.8 Lymphocytes # (Auto) 3.0 Monocytes # (Auto) 1.1 Eosinophils # (Auto) 0.2 Basophils # (Auto) 0.1 CBC Comment DIFF FINAL Differential Comment Blood Urea Nitrogen 10 Creatinine 0.85 Random Glucose 107 Total Protein 8.2 Albumin 3.9 Calcium Level 8.5 Alkaline Phosphatase 137 Aspartate Amino Transf (AST/SGOT) 62 Alanine Aminotransferase (ALT/SGPT) 101 Total Bilirubin 0.4 Sodium Level 137 Potassium Level 4.0 Chloride Level 103 Carbon Dioxide Level 27.3 Anion Gap 7 Estimat Glomerular Filtration Rate 97 Salicylates Level LESS THAN 1.7 Acetaminophen Level LESS THAN 2.0 Valproic Acid (Depakene) Level LESS THAN 3 [place] Level LESS THAN 0.1 Ethyl Alcohol Level 25 Urine Opiates Screen NEG Urine Barbiturates Screen NEG Urine Amphetamines Screen NEG Urine Benzodiazepines Screen NEG Urine Cocaine Screen POS Urine Cannabinoids Screen NEG Diagnosis Primary Impression: Cocaine abuse Psychiatrically Cleared: Yes Med/ Other Pt Specific Info: No Meds Exist/No RX given Disposition: 01 DISCHARGE HOME Condition: Stable Iqra Herr Apr 16, 2017 19:51
--- NOTE | 2017-04-16 21:08 | EKG ---
Date Performed: 04/16/2017 Time Performed: 10:44:36 PTAGE: 46 years EKG: Sinus rhythm NORMAL ECG PREVIOUS TRACING : 12/17/2016 06.15 Compared to prior tracing no significant change DOCTOR: Edi Resendez Interpretating Date/Time 04/16/2017 21:06:33
== END 2017-04-16 20:25 | disposition home or self-care (01) ==
LOC: NEPE 10:16 → NEPJ 20:25
DX: F14.10 Cocaine abuse, uncomplicated (principal); F32.9 Major depressive disorder, single episode, unspecified; F41.9 Anxiety disorder, unspecified; F20.9 Schizophrenia, unspecified; B19.20 Unspecified viral hepatitis C without hepatic coma; F17.200 Nicotine dependence, unspecified, uncomplicated; R07.89 Other chest pain; Z79.899 Other long term (current) drug therapy
CPT/HCPCS: 80053; 80164; 80178; 80307; 85025; 93005; 99284

== ENCOUNTER 2017-07-16 04:50 | Emergency (ER) | payer SELFPAY ==
[~2017-07-16] VITALS: Ht 190.5 cm; Wt 82.0 kg
[~2017-07-16 04:50] MED LIST changes: +AMIT100T2 PO; -AMIT50TA3 PO; -DIVA250ER PO; -LITH150C PO; -ZYPR2.5T2 PO
[2017-07-16 04:55] VITALS: BP 112/70; PULSE 101; RESP 16; TEMP 98.3; O2SAT 98
--- NOTE | 2017-07-16 05:27 | PD ---
HPI Chief Complaint: Injury Time Seen by Provider: 05:19 Travel History International Travel<30 days: No Contact w/Intl Traveler<30days: No Traveled to known affect area: No History of Present Illness HPI 46-year-old male with history of seizure disorder on Topamax, schizoaffective/ bipolar disorder on lithium and Zyprexa as well as Ativan, here for evaluation of anxiety and right ankle pain. The patient reports that he jumped over a fence and injured his right ankle this evening. He is also feeling extremely anxious. He admits to drinking some alcohol tonight. Denies any using any illicit drugs. States that he has had suicide attempts in the past, and is afraid he may hurt himself, although currently does not have any specific plan. No other injuries. PFSH Past Medical History Anxiety: Yes Depression: Yes Heart Rhythm Problems: Yes (PALPITATIONS) Cardiac Catheterization: No Cardiovascular Problems: Yes High Cholesterol: No Congestive Heart Failure: No Diabetes: No Diminished Hearing: No Hepatitis: Yes (Hep C) Hypertension: Yes Psychiatric: Yes (Schizo Affective) Immunizations Current: Yes Seizures: Yes Tetanus Vaccination: < 5 Years Influenza Vaccination: Yes Past Surgical History Eye Surgery: Yes (retinal surgery 1978) Social History Alcohol Use: Yes (OCCASSIONALLY) Tobacco Use: Yes (1 PPD) Substance Use: Yes Allergies-Medications (Allergen,Severity, Reaction): Coded Allergies: bee venom protein (honey bee) (Verified Allergy, Unknown, 07/16/17) peanut (Verified Allergy, Unknown, 07/16/17) Reported Meds & Prescriptions Reported Meds & Active Scripts Active Reported Amitriptyline (Amitriptyline HCl) 100 Mg Tab 100 Mg PO HS Zoloft (Sertraline HCl) 50 Mg Tab 50 Mg PO DAILY Review of Systems Except as stated in HPI: all other systems reviewed are Neg Physical Exam Narrative GENERAL: Well-developed, well-nourished, awake, alert, no apparent distress. SKIN: Focused skin assessment warm/dry. HEAD: Atraumatic. Normocephalic. EYES: Pupils equal and round. No scleral icterus. No injection or drainage. ENT: No nasal bleeding or discharge. Mucous membranes pink and moist. NECK: Trachea midline. No JVD. CARDIOVASCULAR: Regular rate and rhythm. Bilateral dorsalis pedis pulses are brisk and equal. RESPIRATORY: No accessory muscle use. Clear to auscultation. Breath sounds equal bilaterally. GASTROINTESTINAL: Abdomen soft, non-tender, nondistended. MUSCULOSKELETAL: Right foot and ankle without obvious deformity with moderate diffuse tenderness, with normal range of motion. NEUROLOGICAL: Awake and alert. No obvious cranial nerve deficits. Motor grossly within normal limits. Normal speech. PSYCHIATRIC: Appears anxious. Data Data Last Documented VS Vital Signs Date Time Temp Pulse Resp B/P (MAP) Pulse Ox O2 Delivery O2 Flow Rate FiO2 07/16/17 04:55 98.3 101 16 112/70 (84) 98 Orders Orders Complete Blood Count With Diff (07/16/17 05:23) Comprehensive Metabolic Panel (07/16/17 05:23) Thyroid Stimulating Hormone (07/16/17 05:23) Psych Screen (07/16/17 05:23) [place] (Li) (07/16/17 05:23) Drug Screen, Random Urine (07/16/17 05:23) Alcohol (Ethanol) (07/16/17 05:23) Salicylates (Aspirin) (07/16/17 05:23) Tylenol (Acetaminophen) (07/16/17 05:23) Ankle, Complete ([id number]) (07/16/17 ) Foot, Complete ([id number]) (07/16/17 ) Topiramate (Topamax) (07/16/17 05:30) Lorazepam (Ativan) (07/16/17 05:30) Olanzapine (Zyprexa) (07/16/17 05:30) Diet Regular Basic (07/16/17 Breakfast) Labs Laboratory Tests Test 07/16/17 05:45 White Blood Count 12.3 TH/MM3 Red Blood Count 4.98 MIL/MM3 Hemoglobin 15.8 GM/DL Hematocrit 45.0 % Mean Corpuscular Volume 90.3 FL Mean Corpuscular Hemoglobin 31.7 PG Mean Corpuscular Hemoglobin Concent 35.2 % Red Cell Distribution Width 13.4 % Platelet Count 203 TH/MM3 Mean Platelet Volume 7.6 FL Neutrophils (%) (Auto) 66.3 % Lymphocytes (%) (Auto) 25.1 % Monocytes (%) (Auto) 7.0 % Eosinophils (%) (Auto) 1.0 % Basophils (%) (Auto) 0.6 % Neutrophils # (Auto) 8.2 TH/MM3 Lymphocytes # (Auto) 3.1 TH/MM3 Monocytes # (Auto) 0.9 TH/MM3 Eosinophils # (Auto) 0.1 TH/MM3 Basophils # (Auto) 0.1 TH/MM3 CBC Comment DIFF FINAL Differential Comment Blood Urea Nitrogen 9 MG/DL Creatinine 1.07 MG/DL Random Glucose 113 MG/DL Total Protein 7.9 GM/DL Albumin 3.6 GM/DL Calcium Level 8.1 MG/DL Alkaline Phosphatase 119 U/L Aspartate Amino Transf (AST/SGOT) 37 U/L Alanine Aminotransferase (ALT/SGPT) 60 U/L Total Bilirubin 0.3 MG/DL Sodium Level 144 MEQ/L Potassium Level 3.9 MEQ/L Chloride Level 112 MEQ/L Carbon Dioxide Level 24.4 MEQ/L Anion Gap 8 MEQ/L Estimat Glomerular Filtration Rate 75 ML/MIN Thyroid Stimulating Hormone 3rd Gen 0.438 uIU/ML Salicylates Level 2.6 MG/DL Urine Opiates Screen NEG Acetaminophen Level LESS THAN 2.0 MCG/ML Urine Barbiturates Screen NEG Urine Amphetamines Screen NEG Urine Benzodiazepines Screen NEG Urine Cocaine Screen POS Urine Cannabinoids Screen POS Ethyl Alcohol Level 45 MG/DL MDM Medical Decision Making Medical Screen Exam Complete: Yes Emergency Medical Condition: Yes Medical Record Reviewed: Yes Differential Diagnosis Right ankle/foot fracture/contusion, anxiety, alcohol intoxication, suicidal ideation, adjustment disorder Narrative Course Vital signs reviewed. CBC is unremarkable. CMP is unremarkable. TSH 0.438. Tylenol and salicylate levels are negative. Alcohol level is 45. Urine drug screen is positive for cocaine and cannabinoids. Right ankle x-ray: No evidence of fracture. Right foot x-ray: No evidence of fracture. The patient was made aware of all findings. He is resting comfortably. He has been ambulating on his right foot and ankle without difficulty and without assistance while in the emergency department. He is requesting psychiatric evaluation and is medically cleared for evaluation by by psychiatry and disposition by them. Diagnosis Primary Impression: Right ankle sprain Qualified Codes: S93.401A - Sprain of unspecified ligament of right ankle, initial encounter Additional Impressions: Anxiety Adjustment disorder Qualified Codes: F43.20 - Adjustment disorder, unspecified John Mcmahon MD Jul 16, 2017 05:27
[2017-07-16] MEDS ORDERED: TOPIRAMATE 100 MG TAB PO ONE (05:30)
[2017-07-16] MEDS ORDERED: LORazepam 1 MG TAB PO ONE (05:30)
[2017-07-16] MEDS ORDERED: OLANZapine 5 MG TAB PO ONE (05:30)
[2017-07-16 06:02] LABS: AUTOMATED NEUTROPHIL # 8.2 TH/MM3 (1.8-7.7); BASOPHIL # 0.1 TH/MM3 (0-0.2); BASOPHIL % 0.6 % (0.0-2.0); EOSINOPHIL # 0.1 TH/MM3 (0-0.4); HEMOGLOBIN 15.8 GM/DL (13.0-17.0); LYMPH % 25.1 % (9.0-44.0); LYMPHOCYTE # 3.1 TH/MM3 (1.0-4.8); MEAN CELL VOLUME 90.3 FL (80.0-100.0); MEAN CORPUSCULAR HEMOGLOBIN 31.7 PG (27.0-34.0); MEAN CORPUSCULAR HGB CONC 35.2 % (32.0-36.0); MEAN PLATELET VOLUME 7.6 FL (7.0-11.0); MONOCYTE # 0.9 TH/MM3 (0-0.9); NEUT % 66.3 % (16.0-70.0); PLATELET COUNT 203 TH/MM3 (150-450); RED BLOOD COUNT 4.98 MIL/MM3 (4.50-5.90); RED CELL DISTRIBUTION WIDTH 13.4 % (11.6-17.2); WHITE BLOOD COUNT 12.3 TH/MM3 (4.0-11.0)
--- NOTE | 2017-07-16 06:30 | RADRPT ---
EXAM DATE/TIME: 07/16/2017 06:04 [facility] COMPARISON: No previous studies available for comparison. INDICATIONS : Patient jumped over fence and landed on right foot/ankle. Complains of lateral ankle pain. MEDICAL HISTORY : None. SURGICAL HISTORY : None. ENCOUNTER: Initial ACUITY: 1 day PAIN SCORE: 9/10 LOCATION: Right Ankle FINDINGS: 3 views right ankle. Bone alignment within normal limits. No evidence of fracture. Ankle mortise int act. CONCLUSION: No evidence of fracture. Daniele Bowling MD on July 16, 2017 at 6:27 Board Certified Radiologist. This report was verified electronically.
[2017-07-16 06:35] LABS: ALBUMIN 3.6 GM/DL (3.4-5.0); ALT (GPT) 60 U/L (12-78); AST (GOT) 37 U/L (15-37); BICARBONATE 24.4 MEQ/L (21.0-32.0); BLOOD UREA NITROGEN 9 MG/DL (7-18); CALCIUM 8.1 MG/DL (8.5-10.1); CHLORIDE 112 MEQ/L (98-107); CREATININE 1.07 MG/DL (0.60-1.30); GLOMERULAR FILTRATION RATE 75 ML/MIN (>89); GLUCOSE,RANDOM 113 MG/DL (74-106); SODIUM (NA) 144 MEQ/L (136-145)
[2017-07-16 06:36] LABS: ALKALINE PHOSPHATASE 119 U/L (45-117); TOTAL BILIRUBIN ADULT 0.3 MG/DL (0.2-1.0); TOTAL PROTEIN 7.9 GM/DL (6.4-8.2)
[2017-07-16 06:37] LABS: ACETAMINOPHEN LESS THAN 2.0 MCG/ML (10.0-30.0)
--- NOTE | 2017-07-16 06:38 | RADRPT ---
EXAM DATE/TIME: 07/16/2017 06:02 [facility] COMPARISON: No previous studies available for comparison. INDICATIONS : Patient was jumping over a fence and landed on right foot. Pain on lateral side of right foot. MEDICAL HISTORY : None. SURGICAL HISTORY : None. ENCOUNTER: Initial ACUITY: 1 day PAIN SCORE: 8/10 LOCATION: Right Foot FINDINGS: 3 views right foot. Bone alignment within normal limits. No evidence of fracture. CONCLUSION: No evidence of fracture. Daniele Bowling MD on July 16, 2017 at 6:34 Board Certified Radiologist. This report was verified electronically.
[2017-07-16 12:57] VITALS: BP 125/85; PULSE 74; RESP 18; O2SAT 98
[2017-07-16] MEDS ORDERED: ZIPR1CAP12 PO (18:59)
[2017-07-16 19:20] VITALS: BP 117/79; PULSE 64; RESP 17; O2SAT 99
== END 2017-07-16 22:48 | disposition home or self-care (01) ==
LOC: NEPC 04:50 → NEDAMB 22:48
DX: S93.401A Sprain of unspecified ligament of right ankle, initial encounter (principal); F43.22 Adjustment disorder with anxiety; F14.10 Cocaine abuse, uncomplicated; F12.10 Cannabis abuse, uncomplicated; G40.909 Epilepsy, unspecified, not intractable, without status epilepticus; F20.9 Schizophrenia, unspecified; F31.9 Bipolar disorder, unspecified; I10 Essential (primary) hypertension; W17.89XA Other fall from one level to another, initial encounter
CPT/HCPCS: 73610; 73630; 80053; 80178; 80307; 84443; 85025; 99284